=== PATIENT | female | born 1980 | race African-American/Black ===

== ENCOUNTER 2017-05-09 09:56 | Emergency (ER) | payer SELFPAY ==
[2017-05-09 10:21] VITALS: BP 146/88
--- NOTE | 2017-05-09 10:36 | UC ---
Abdominal Pain Female HPI - HPI Summary HPI Summary: 4 days of right side muscle pain began after exercise no nausea vomiting diarrhea or fever, no urinary symptoms - History of Current Complaint Chief Complaint: UCAbdominalPain Stated Complaint: RIGHT SIDE PAIN (RIBS/ABD AREA) Time Seen by Provider: 05/09/17 10:23 Hx Obtained From: Patient Hx Last Menstrual Period: 05/06/17 ?: No Onset/Duration: Sudden Onset, Lasting Days - 4, Still Present Timing: Constant Severity Initially: Moderate Severity Currently: Moderate Pain Intensity: 6 Pain Scale Used: 0-10 Numeric Location: Discrete At: RUQ Radiates: No Character: Aching Aggravating Factor(s): Movement Alleviating Factor(s): Nothing Associated Signs and Symptoms: Positive: Negative Allergies/Adverse Reactions: Allergies Allergy/AdvReac Type Severity Reaction Status Date / Time cefaclor [From [facility]] Allergy Hives Verified 05/09/17 10:21 Sulfa (Sulfonamide Allergy Airway Verified 05/09/17 10:21 Antibiotics) Obstruction Home Medications: Home Medications Ibuprofen TAB* [Motrin TAB* 800 MG] 800 mg PO ONCE PRN 05/09/17 [History Confirmed 05/09/17] PMH/Surg Hx/FS Hx/Imm Hx Previously Healthy: Yes - Surgical History Surgical History: None - Family History Known Family History: Positive: None - Social History 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 Lives: With Family Alcohol Use: None Substance Use Type: None Smoking Status (MU): Never Smoked Tobacco Type: Cigarettes Review of Systems Constitutional: Negative Skin: Negative Eyes: Negative ENT: Negative Respiratory: Negative Cardiovascular: Negative Gastrointestinal: Negative Genitourinary: Negative Motor: Negative Neurovascular: Negative Musculoskeletal: Negative, Myalgia Neurological: Negative Psychological: Negative Is Patient Immunocompromised?: No All Other Systems Reviewed And Are Negative: Yes Physical Exam Triage Information Reviewed: Yes Appearance: Well-Appearing, No Pain Distress, Well-Nourished Vital Signs: Initial Vital Signs Temp 98.8 F 05/09/17 10:17 Pulse 79 05/09/17 10:17 Resp 14 05/09/17 10:17 BP 146/88 05/09/17 10:17 Pulse Ox 98 05/09/17 10:17 Vital Signs Reviewed: Yes Eye Exam: Normal Eyes: Positive: Conjunctiva Clear ENT Exam: Normal ENT: Positive: Normal ENT inspection, Hearing grossly normal, Pharynx normal, TMs normal. Negative: Nasal congestion, Tonsillar swelling, Tonsillar exudate, Trismus, Muffled voice, Hoarse voice, Sinus tenderness Dental Exam: Normal Neck exam: Normal Neck: Positive: Supple, Nontender, No Lymphadenopathy Respiratory Exam: Normal Respiratory: Positive: Chest non-tender, Lungs clear, Normal breath sounds, No respiratory distress, No accessory muscle use Cardiovascular Exam: Normal Cardiovascular: Positive: RRR, No Murmur, Pulses Normal, Brisk Capillary Refill Abdominal Exam: Normal Abdomen Description: Positive: Nontender, No Organomegaly, Soft. Negative: CVA Tenderness (R), CVA Tenderness (L), Distended, Guarding, Hepatomegaly, McBurney' s Point Tenderness, Peritoneal Signs, Pulsatile Mass Bowel Sounds: Positive: Present Musculoskeletal Exam: Normal Musculoskeletal: Positive: Strength Intact, ROM Intact, No Edema Neurological Exam: Normal Neurological: Positive: Alert Psychological Exam: Normal Skin Exam: Normal Abd Pain Female Course/Dx - Course Course Of Treatment: ibuprofen, flexeril, avoid mid abdomen exercise untill resolved, follow with pcp, or to ED should symptoms worsen - Differential Dx/Diagnosis Provider Diagnoses: Muscular skelatal pain Discharge - Discharge Plan Condition: Stable Disposition: HOME Prescriptions: Cyclobenzaprine TAB* [Flexeril 10 MG TAB*] 10 mg PO TID PRN #15 tab PRN Reason: muscle pain Ibuprofen TAB* [Motrin TAB* 800 MG] 800 mg PO Q8H #30 tab Patient Education Materials: Muscle Strain (ED), Musculoskeletal Pain (ED) Referrals: [facility] [place] [Outside] - If Needed
== END 2017-05-09 10:48 | disposition home or self-care (01) ==
LOC: UCCORT 09:56
DX: R10.9 Unspecified abdominal pain (principal); Z88.1 Allergy status to other antibiotic agents; Z88.2 Allergy status to sulfonamides
CPT/HCPCS: 81003; 84702; 99212; G0463

== ENCOUNTER 2018-01-28 07:37 | Emergency (ER) | payer MEDICAID ==
[2018-01-28 07:47] VITALS: BP 125/62
--- NOTE | 2018-01-28 08:14 | UC ---
Throat Pain/Nasal Fran HPI - HPI Summary HPI Summary: Patient is a 37-year-old female that presents here with a sore throat and hoarseness 3 days she has some mild nasal congestion. She denies any fever or chills. She is 11 weeks . She denies any nausea vomiting or diarrhea. She has been able to tolerate both solids and liquids. - History of Current Complaint Chief Complaint: UCRespiratory Stated Complaint: ST Time Seen by Provider: 01/28/18 07:58 Hx Obtained From: Patient Hx Last Menstrual Period: 05/06/17 Onset/Duration: Gradual Onset Severity: Moderate Pain Intensity: 6 Pain Scale Used: 0-10 Numeric Cough: None Associated Signs & Symptoms: Positive: Nasal Discharge - Epiglottits Risk Factors Epiglottis Risk Factors: Negative - Allergies/Home Medications Allergies/Adverse Reactions: Allergies Allergy/AdvReac Type Severity Reaction Status Date / Time cefaclor [From [facility]] Allergy Hives Verified 01/28/18 07:43 Sulfa (Sulfonamide Allergy Airway Verified 01/28/18 07:43 Antibiotics) Obstruction Home Medications: Home Medications Vitamin TAB* 1 tab PO DAILY 01/28/18 [History Confirmed 01/28/18] PMH/Surg Hx/FS Hx/Imm Hx Previously Healthy: Yes - Surgical History Surgical History: None - Family History Known Family History: Positive: None Negative: Cardiac Disease, Hypertension, Diabetes - Social History Alcohol Use: None Substance Use Type: None Smoking Status (MU): Former Smoker Type: Cigarettes When Did the Patient Quit Smoking/Using Tobacco: 1 year ago Review of Systems All Other Systems Reviewed And Are Negative: Yes Constitutional: Positive: Negative Skin: Positive: Negative Eyes: Positive: Negative ENT: Positive: Ear Ache, Nasal Discharge Respiratory: Positive: Negative Cardiovascular: Positive: Negative Gastrointestinal: Positive: Negative Genitourinary: Positive: Negative Motor: Positive: Negative Neurovascular: Positive: Negative Musculoskeletal: Positive: Negative Neurological: Positive: Negative Psychological: Positive: Negative Physical Exam Triage Information Reviewed: Yes Appearance: Well-Appearing, No Pain Distress, Well-Nourished Vital Signs: Initial Vital Signs Temp 98.2 F 01/28/18 07:44 Pulse 66 01/28/18 07:44 Resp 16 01/28/18 07:44 BP 125/62 01/28/18 07:44 Pulse Ox 100 01/28/18 07:44 Eyes: Positive: Conjunctiva Clear ENT: Positive: Hearing grossly normal, Pharyngeal erythema, Nasal drainage, TMs normal, Hoarse voice, Uvula midline. Negative: Tonsillar swelling, Tonsillar exudate, Trismus, Muffled voice, Sinus tenderness Neck: Positive: Supple, Nontender, No Lymphadenopathy Respiratory: Positive: Lungs clear, Normal breath sounds, No respiratory distress, No accessory muscle use Cardiovascular: Positive: RRR, No Murmur Musculoskeletal: Positive: ROM Intact, No Edema Neurological: Positive: Alert Psychological Exam: Normal Diagnostics - Laboratory Diagnostic Studies Completed/Ordered: strep (-) Throat Pain/Nasal Course/Dx - Differential Dx/Diagnosis Provider Diagnosis: Pharyngitis, Laryngitis Discharge - Sign-Out/Discharge Documenting (check all that apply): Patient Departure All imaging exams completed and their final reports reviewed: No Studies - Discharge Plan Condition: Stable Disposition: HOME Patient Education Materials: Pharyngitis (ED), Laryngitis (ED) Referrals: No Primary Care Phys,NOPCP [Primary Care Provider] - Additional Instructions: tylenol no ibuprofen saline nasal spray OK to use recheck for new or worsening symptoms recheck in 4-7 days if not better - Billing Disposition and Condition Condition: STABLE Disposition: Home
== END 2018-01-28 08:24 | disposition home or self-care (01) ==
LOC: UCCORT 07:37
DX: O26.891 Other specified pregnancy related conditions, first trimester (principal); Z3A.11 11 weeks gestation of pregnancy; J02.9 Acute pharyngitis, unspecified; J04.0 Acute laryngitis; Z88.2 Allergy status to sulfonamides; Z88.1 Allergy status to other antibiotic agents
CPT/HCPCS: 87651; 99211; G0463

== ENCOUNTER 2018-04-05 08:24 | Emergency (ER) | payer MEDICAID ==
[2018-04-05 09:08] VITALS: BP 129/76
--- NOTE | 2018-04-05 09:35 | ED ---
Throat Pain/Nasal Congestion - HPI Summary HPI Summary: 37 yr old female with the complaint of runny nose, post nasal drip, sinus congestion, coughing. Onset of symptoms two weeks ago. Cough productive of yellow sputum. She has nasal secretions of blood tinged mucous. She denies fever or chills. She has coughing fits that are annoying. She is about 21 weeks . No SOB, no cp. She denies smoking. She has no other complaints. - History of Current Complaint Chief Complaint: UCRespiratory Time Seen by Provider: 04/05/18 09:24 - Allergies/Home Medications Allergies/Adverse Reactions: Allergies Allergy/AdvReac Type Severity Reaction Status Date / Time cefaclor [From [facility]] Allergy Hives Verified 04/05/18 09:04 Sulfa (Sulfonamide Allergy Airway Verified 04/05/18 09:04 Antibiotics) Obstruction Home Medications: Home Medications Acetaminophen [Acetaminophen Extra Strength] 1,000 mg PO Q6H PRN 04/05/18 [ History Confirmed 04/05/18] Guaifenesin/Dextromethorphan [Mucinex Dm ER 600-30 mg Tablet] 1 each PO Q6HR PRN 04/05/18 [History Confirmed 04/05/18] PMH/Surg Hx/FS Hx/Imm Hx Endocrine/Hematology History: Denies: Hx Diabetes, Hx Thyroid Disease Cardiovascular History: Denies: Hx Hypertension Respiratory History: Denies: Hx Asthma, Hx Chronic Obstructive Pulmonary Disease (COPD) GI History: Denies: Hx Ulcer Musculoskeletal History: Denies: Hx Rheumatoid Arthritis, Hx Osteoporosis Infectious Disease History: No Infectious Disease History: Denies: Hx Hepatitis, Hx Human Immunodeficiency Virus (HIV), Traveled Outside the [place] in Last 30 Days - Family History Known Family History: Positive: None Negative: Cardiac Disease, Hypertension, Diabetes - Social History Alcohol Use: None Substance Use Type: Reports: None Smoking Status (MU): Former Smoker Type: Cigarettes Length of Time of Smoking/Using Tobacco: <1/4 PPD x 15 Years Review of Systems Constitutional: Negative Positive: Nasal Discharge Positive: Cough All Other Systems Reviewed And Are Negative: Yes Physical Exam Triage Information Reviewed: Yes Vital Signs On Initial Exam: Initial Vitals Temp Pulse Resp BP Pulse Ox 98.4 F 82 18 129/76 99 04/05/18 09:05 04/05/18 09:05 04/05/18 09:05 04/05/18 09:05 04/05/18 09:05 Vital Signs Reviewed: Yes Appearance: Positive: Well-Appearing, No Pain Distress Skin: Positive: Warm, Skin Color Reflects Adequate Perfusion Head/Face: Positive: Normal Head/Face Inspection Eyes: Positive: EOMI, FIDENCIO ENT: Positive: Pharyngeal erythema, Nasal congestion, Nasal drainage, TMs normal , Sinus tenderness Neck: Positive: Nontender Respiratory/Lung Sounds: Positive: Clear to Auscultation, Breath Sounds Present Cardiovascular: Positive: RRR. Negative: Murmur Abdomen Description: Positive: Nontender Musculoskeletal: Positive: Strength/ROM Intact Neurological: Positive: Sensory/Motor Intact, Alert, Oriented to Person Place, Time, CN Intact II-III Psychiatric: Positive: Normal Diagnostics - Vital Signs Vital Signs Temp Pulse Resp BP Pulse Ox 04/05/18 09:05 98.4 F 82 18 129/76 99 - Laboratory Lab Statement: Any lab studies that have been ordered have been reviewed, and results considered in the medical decision making process. EENT Course/Dx - Course Course Of Treatment: 37 yr old with sinusitis, and bronchitis. Rx zithromax and albuterol. She has allergies to cefaclor, and sulfa. - Diagnoses Provider Diagnoses: Sinusitis, Acute bronchitis Discharge - Sign-Out/Discharge Documenting (check all that apply): Patient Departure All imaging exams completed and their final reports reviewed: No Studies - Discharge Plan Condition: Good Disposition: HOME Prescriptions: Albuterol HFA INHALER* [Ventolin HFA Inhaler*] 1 - 2 puff INH Q6H PRN #1 mdi PRN Reason: Cough Azithromycin TAB* [Zithromax TAB (Z-ALFREDO) 250 mg #6 tabs] 2 tab PO .TODAY, THEN 1 DAILY #1 alfredo Patient Education Materials: Sinusitis (ED), Acute Bronchitis (ED) Referrals: No Primary Care Phys,NOPCP [Primary Care Provider] - [facility] – [place] [facility] [Outside] - 3 Days - Billing Disposition and Condition Condition: GOOD Disposition: Home
== END 2018-04-05 09:39 | disposition home or self-care (01) ==
LOC: UCCORT 08:24
DX: O99.512 Diseases of the respiratory system complicating pregnancy, second trimester (principal); J32.9 Chronic sinusitis, unspecified; J20.9 Acute bronchitis, unspecified; Z88.1 Allergy status to other antibiotic agents; Z88.2 Allergy status to sulfonamides; Z87.891 Personal history of nicotine dependence; Z3A.21 21 weeks gestation of pregnancy
CPT/HCPCS: 99212; G0463

== ENCOUNTER 2018-08-11 06:11 | Inpatient (IN) | payer MEDICAID ==
[~2018-08-11 06:11] MED LIST: Buffered Lidocaine 1% SYRIN* 1 ML/SYRINGE INTRADERM ONE; Lactated Ringers 1000 ML Bag* 1,000 ML IV SCH; Sodium Citrate/Citric Acid* 15 ML UDC ONE; Sodium Citrate/Citric Acid* 15 ML UDC PO ONE; ceFAZolin 2 GM PREMIX in ORs 2 GM/50 ML BAG (FOR ORs ONLY) ONE
[2018-08-11] MEDS ORDERED: Morphine PF AMP (0.5MG/ML)* 5 MG/10 ML AMP ONE (07:23)
[2018-08-11] MEDS ORDERED: OXYTOCIN* 10 UNITS/ML 1 ML VIAL ONE (08:59)
[2018-08-11] MEDS ORDERED: oxyCODONE/Acetamin 5/325 MG* TAB PO PRN (09:41)
[2018-08-11] MEDS ORDERED: Naloxone* 0.4 MG/ML 1 ML VIAL IV PRN ×2 (09:41)
[2018-08-11] MEDS ORDERED: Nalbuphine* 10 MG/ML 1 ML VIAL IV PRN (09:41)
[2018-08-11] MEDS ORDERED: Ondansetron INJ* 2 MG/ML VIAL IV PRN (09:41)
[2018-08-11] MEDS: Ibuprofen TAB* 400 MG PO SCH ×2 (11:59→18:05)
[2018-08-11] MEDS ORDERED: Acetaminophen TAB* 325 MG PO PRN (13:04)
[2018-08-11] MEDS ORDERED: Dibucaine 1% 28.35 GM TUBE PR PRN (13:04)
[2018-08-11] MEDS ORDERED: Glycerin ADULT SUPP PR PRN (13:04)
[2018-08-11] MEDS ORDERED: Witch Hazel PAD* JAR TOPICAL PRN (13:04)
[2018-08-11] MEDS ORDERED: Lactated Ringers 1000 ML Bag* 1,000 ML IV SCH (14:00)
--- NOTE | 2018-08-11 14:26 | OP ---
OPERATIVE NOTE: DATE OF PROCEDURE: 08/11/18 - Inpatient, room 115-01 DATE OF : 82 DATE OF ADMISSION: 08/11/18 SURGEON: Daisy Eastman MD. GLOBAL TECHNICAL WRITER: Dr. Mendoza. ANESTHESIOLOGIST: Ferdinand Burks DO. ANESTHESIA: Spinal. PRE-OP DIAGNOSIS: Intrauterine gestation at 39 and 2 weeks' gestational age, breech presentation, declines external cephalic version. POST-OP DIAGNOSIS: Intrauterine gestation at 39 and 2 weeks' gestational age, breech presentation, declines external cephalic version. OPERATIVE PROCEDURE: Primary low transverse section. ESTIMATED BLOOD LOSS: 800 mL FLUID: Crystalloid. COMPLICATIONS: None. COUNTS: Correct. FINDINGS: Normal-appearing uterus, ovaries, and tubes. Female infant 8 pounds 12 ounces. Apgars were 8 and 8. DESCRIPTION OF PROCEDURE: After informed consent was signed, the patient was taken to the operating room, where she was given spinal anesthesia that was found to be adequate. She was prepped and draped in the dorsal supine position with a leftward tilt. A time-out was performed and a Pfannenstiel skin incision was made with a scalpel and carried down to the underlying layer of fascia with the scalpel. The fascia was incised on either side of the midline and the fascial incision extended laterally with blunt pressure. The inferior edge of the fascial incision was grasped with Boaz clamps, tented up, and dissected down with sharp dissection with a Coburn scissors. Then, the superior edge of the fascial incision was grasped with Boaz clamps, tented up, and dissected down with sharp dissection with the Coburn scissors. The rectus muscles were in the midline and the peritoneum was entered bluntly. The peritoneal incision was extended laterally with blunt pressure. A bladder blade was inserted and a transverse incision was made in the lower uterine segment with a scalpel. The incision was extended superiorly and inferiorly. The infant was indeed in breech presentation. Feet were delivered, followed by the buttocks, and the rest of the body. The arms were rotated internally to deliver and followed by delivery of the head in a flexed position. The cord was milked towards the baby and clamped x2 and cut and handed to the diamond selector. The placenta delivered with fundal massage and gentle cord traction. Cord blood was also collected. The uterus was then cleared of clots and debris and exteriorized. The uterine incision was closed with 0 Vicryl in a running locked fashion with the second layer of suture imbricating the first. A [id number] suture with 3-0 chromic was placed in the incision to achieve excellent hemostasis. The abdomen was then irrigated and the uterus was placed back into the abdominal cavity. The incision was inspected and once again, good hemostasis was noted. The peritoneum was closed with 3-0 chromic in a running unlocked fashion. The rectus muscles were inspected and good hemostasis was noted. The fascia was then closed with 0 Vicryl in a running unlocked fashion. The subcuticular layer was closed with 4 interrupted sutures of 0 Vicryl. The subcuticular tissue was irrigated and the skin was closed with 4-0 Monocryl in a running subcuticular fashion. Mastisol and Steri- Strips were placed. The dressing was placed. The patient was cleaned, moved to the stretcher, and taken to the recovery room in stable condition. [id number]/[facility] #: [id number] RODOLFO
[2018-08-11] MEDS: Docusate CAP* 100 MG PO SCH ×2 (15:22→21:16)
[2018-08-11] MEDS: Simethicone TAB* 80 MG TAB.CHEW PO SCH ×2 (18:06→21:16)
[2018-08-11] MEDS ORDERED: Measles, Mumps,Rubella VACC* 0.5 ML/VIAL SUBCUT ONE (19:04)
[2018-08-12] MEDS ORDERED: oxyCODONE/Acetamin 5/325 MG* TAB PO PRN (00:30)
[2018-08-12] MEDS: Ibuprofen TAB* 600 MG PO PRN ×3 (01:25→15:09)
[2018-08-12] MEDS: oxyCODONE/Acetamin 5/325 MG* TAB PO PRN ×4 (05:20→20:47)
[2018-08-12 07:41] LABS: ABS Eosinophils 0.1 10^3/ul (0-0.6); ABS Lymphocytes 2.3 10^3/ul (1.0-4.8); ABS Monocytes 1.2 10^3/ul (0-0.8); ABS Neutrophils 9.5 10^3/ul (1.5-7.7); Eosinophil % 0.6 %; Hematocrit 32 % (35-47); Hemoglobin 10.9 g/dL (12.0-16.0); Lymphocyte % 17.3 %; Mean Corpuscular HGB Conc 34 g/dL (31-36); Mean Corpuscular Hemoglobin 29 pg (27-31); Mean Corpuscular Volume 85 fL (80-97); Mean Platelet Volume 8.1 fL (7.4-10.4); Nucleated Red Blood Cells % 0.1; Platelet Count 301 10^3/uL (150-450); Red Blood Count 3.75 10^6 /uL (3.70-4.87); Red Cell Distribution Width 14 % (10-15); White Blood Count 13.2 10^3/uL (3.5-10.8)
[2018-08-12] MEDS: Docusate CAP* 100 MG PO SCH ×3 (08:45→20:47)
[2018-08-12] MEDS: Simethicone TAB* 80 MG TAB.CHEW PO SCH ×4 (08:45→20:47)
[2018-08-12] MEDS ORDERED: Ferrous Gluconate TAB* 324 MG TAB PO SCH (09:00)
[2018-08-12] MEDS ORDERED: Zolpidem TAB* 5 MG PO PRN (21:00)
[2018-08-13] MEDS: Ibuprofen TAB* 600 MG PO PRN ×4 (00:23→19:53)
[2018-08-13] MEDS: oxyCODONE/Acetamin 5/325 MG* TAB PO PRN ×3 (09:12→18:28)
[2018-08-13] MEDS: Simethicone TAB* 80 MG TAB.CHEW PO SCH ×4 (09:12→21:38)
[2018-08-13] MEDS: Docusate CAP* 100 MG PO SCH ×3 (09:13→21:38)
[2018-08-14] MEDS: oxyCODONE/Acetamin 5/325 MG* TAB PO PRN ×2 (02:03→08:46)
[2018-08-14] MEDS: Ibuprofen TAB* 600 MG PO PRN ×2 (02:04→08:45)
[2018-08-14 07:35] VITALS: BP 130/70
[2018-08-14] MEDS: Simethicone TAB* 80 MG TAB.CHEW PO SCH (08:45)
[2018-08-14] MEDS: Docusate CAP* 100 MG PO SCH (08:45)
[2018-08-14] MEDS ORDERED: diPHENhydraMINE PO* 50 MG PO PRN (11:19)
== END 2018-08-14 13:00 | disposition home or self-care (01) | DRG 540 ==
LOC: MCHOB 06:11
PROVIDERS: ADMIT Obstetrics & Gynecology; ATTEND Obstetrics & Gynecology
PROC: 4A1HXCZ Monitoring of Products of Conception, Cardiac Rate, External Approach (ICD-10-PCS; 2018-08-11)
PROC: 10D00Z1 Extraction of Products of Conception, Low, Open Approach (ICD-10-PCS; principal; 2018-08-11 07:45)
DX: O32.1XX0 Maternal care for breech presentation, not applicable or unspecified (principal); N85.6 Intrauterine synechiae; O75.89 Other specified complications of labor and delivery; O32.2XX0 Maternal care for transverse and oblique lie, not applicable or unspecified; Z37.0 Single live birth; Z88.1 Allergy status to other antibiotic agents; Z88.2 Allergy status to sulfonamides; Z87.891 Personal history of nicotine dependence; Z3A.39 39 weeks gestation of pregnancy
CPT/HCPCS: 36415; 85025; 90707; A9270-GY; J0690; J2590

== ENCOUNTER 2019-04-07 18:26 | Emergency (ER) | payer OTHER ==
[2019-04-07 19:08] VITALS: BP 135/77
--- NOTE | 2019-04-07 19:56 | UC ---
Throat Pain/Nasal Fran HPI - HPI Summary HPI Summary: 38-year-old female with mild sore throat over the past 2 days which she describes more as a tickle. No other symptoms. - History of Current Complaint Chief Complaint: UCRespiratory Stated Complaint: SORE THROAT Time Seen by Provider: 04/07/19 19:45 Hx Obtained From: Patient Hx Last Menstrual Period: 03/23/19 ?: No Onset/Duration: Gradual Onset Severity: Mild Pain Intensity: 8 Cough: None - Allergies/Home Medications Allergies/Adverse Reactions: Allergies Allergy/AdvReac Type Severity Reaction Status Date / Time cefaclor [From [facility]] Allergy Hives Verified 04/07/19 19:00 Sulfa (Sulfonamide Allergy Airway Verified 04/07/19 19:00 Antibiotics) Obstruction PMH/Surg Hx/FS Hx/Imm Hx Previously Healthy: Yes Cardiovascular History: Other - History of a heart murmur - Surgical History Surgical History: None Surgery Procedure, Year, and Place: c-sect 08/11/18 - Family History Known Family History: Positive: None Negative: Cardiac Disease, Hypertension, Diabetes - Social History Alcohol Use: None Substance Use Type: None Smoking Status (MU): Former Smoker Type: Cigarettes Length of Time of Smoking/Using Tobacco: <1/4 PPD x 15 Years When Did the Patient Quit Smoking/Using Tobacco: 2017 - Immunization History Most Recent Influenza Vaccination: N/A Most Recent Pneumonia Vaccination: None Review of Systems All Other Systems Reviewed And Are Negative: Yes ENT: Positive: Sore Throat - Sore throat which she describes more as a tickle over the past couple of days Is Patient Immunocompromised?: No Physical Exam Triage Information Reviewed: Yes Appearance: Well-Appearing, No Pain Distress, Well-Nourished Vital Signs: Initial Vital Signs Temp 98.2 F 04/07/19 19:01 Pulse 72 04/07/19 19:01 Resp 18 04/07/19 19:01 BP 135/77 04/07/19 19:01 Pulse Ox 100 04/07/19 19:01 Vital Signs Reviewed: Yes Eyes: Positive: Conjunctiva Clear ENT: Positive: Pharynx normal, TMs normal, Uvula midline Neck: Positive: Supple, Nontender, No Lymphadenopathy Respiratory: Positive: Lungs clear, Normal breath sounds, No respiratory distress, No accessory muscle use Cardiovascular: Positive: RRR, No Murmur - No murmur was auscultated today., Pulses Normal, Brisk Capillary Refill Musculoskeletal Exam: Normal Neurological Exam: Normal Psychological Exam: Normal Skin Exam: Normal Throat Pain/Nasal Course/Dx - Course Course Of Treatment: Rapid strep test negative The patient is comfortable here with no other symptoms and she is nontoxic. - Differential Dx/Diagnosis Provider Diagnosis: Pharyngitis Discharge ED - Sign-Out/Discharge Documenting (check all that apply): Patient Departure All imaging exams completed and their final reports reviewed: No Studies - Discharge Plan Condition: Good Disposition: HOME Patient Education Materials: Pharyngitis (ED) Referrals: Deborah Hein NP [Primary Care Provider] - Additional Instructions: Warm saltwater gargles, throat lozenges, follow-up with your primary care provider on Thursday or Thursday if no improvement. - Billing Disposition and Condition Condition: GOOD Disposition: Home
== END 2019-04-07 20:01 | disposition home or self-care (01) ==
LOC: UCCORT 18:26
DX: J02.9 Acute pharyngitis, unspecified (principal); Z87.891 Personal history of nicotine dependence; Z88.1 Allergy status to other antibiotic agents; Z88.2 Allergy status to sulfonamides
CPT/HCPCS: 87651; 99211; G0463